=== PATIENT | female | born 1985 | race Caucasian/White ===

== ENCOUNTER 2024-10-12 12:23 | Emergency (ER) | payer BC, SELFPAY ==
[2024-10-12 12:26] VITALS: BP 111/76
--- NOTE | 2024-10-12 12:53 | ED.GENMED ---
History of Present Illness
General
Chief Complaint: Back Pain
Source: patient and family
Exam Limitations: none
Time Seen by Provider: 10/12/24 12:33
History of Present Illness
History of Present Illness:
39yoF with a history of IgA nephropathy, Nancy's, and endometriosis presenting with her mother for evaluation of low back pain. Symptoms initially began on 09/25/24. No reported trauma or inciting incident. She reports pain throughout her low back
which radiates into her anterior thighs and down the anterior legs. Pain is worse with movement and certain positions. Pain feels best if she is standing. She was unable to urinate and had loss of sensation in her bilateral legs on 09/28/24. She went
to [facility] and was admitted for 3 days. She had an MRI of her lumbar spine w/wo contrast which was negative for cauda equina syndrome. She was told that she had a disc bulge at L4-L5 and had degenerative disc disease. She was found to
be deficient in vitamin B12 and was started on injections. She finished a Decadron taper a week ago. She started to have worsening pain over the past 2 days and became became unmanageable today. She took 600mg ibuprofen this morning without relief.
She denies any fevers, saddle anesthesia, urinary retention, incontinence, abdominal pain. She has an appt scheduled with physiatry scheduled at the beginning of November.
Patient was able to pull up the results of her recent MRI on her phone. MRI revealed 'L4-L5, a disc bulge with superimposed left central disc herniation results in mass effect on the bilateral subarticular zones with disc material contacting the
bilateral traversing L5 nerve roots.'
Phy Exam
Physical Exam
Physical Exam:
Standing due to pain. Appears uncomfortable, non-toxic
General Physical Exam
General Presentation: well appearing
General Skin: warm and dry
General Habitus: normal
General Mental: alert
ENT Exam
ENT Exam: normocephalic
Neurological Exam
Neurological Exam: alert and other (Able to left both legs against gravity but hip flexion elicits back pain. Dorsiflexion and plantar flexion intact. 2+ patellar reflexes bilaterally and sensation intact.)
[place] Coma Scale
Eye Opening: Spontaneous
Verbal Response: Oriented
Motor Response: Obeys Commands
GCS Total Score: 15
Musculoskeletal Exam
Musculoskeletal Exam: other (+Tenderness to palpation throughout lumbar region. No skin changes. )
Skin Exam
Skin Exam: normal color and warm/dry
Psychiatric Exam
Psychiatric Exam: normal mood/affect
Course
Orders/Labs/Results
Orders:
Orders
10/12/24 12:52
Dexamethasone Sod Phosphate [Decadron] 10 mg IV NOW STA
Lidocaine [Lidocaine 4% Patch] 2 patch TOPICAL NOW STA
Apply Lidocaine patch(s) to:: low back
diazePAM [Valium Injection] 5 mg IV NOW STA
10/12/24 15:21
Ketorolac [Toradol] 30 mg IV NOW STA
Vital Signs
Initial and Last Documented VS:
Initial Vital Signs
Temp Pulse Resp BP Pulse Ox
98.5 F 97 18 111/76 98
10/12/24 12:26 10/12/24 12:26 10/12/24 12:26 10/12/24 12:26 10/12/24 12:26
Last Documented Vital Signs
Temp Pulse Resp BP Pulse Ox
98.5 F 97 18 111/76 98
10/12/24 12:26 10/12/24 12:26 10/12/24 12:26 10/12/24 12:26 10/12/24 12:26
MDM/Problems Addressed
Differential Diagnosis Includes:
39yoF here with low back pain radiating down both anterior legs. Started last month and was admitted at [facility]. MRI lumbar spine negative for cauda equina but showed a central disc herniation at L4-L5. Pain worsening since yesterday. No trauma. No red
flags in history including no fevers, saddle anesthesia, incontinence. VSS. She appears uncomfortable due to pain. There is reproducible tenderness in the lumbar region. No foot drop noted. Patellar reflexes and sensation intact in lower
extremities. Differential diagnosis includes but is not limited to: lumbar radiculopathy, strain, doubt fracture
Initial ED plan: No indication for imaging at this time given recent MRI and lack of red flag symptoms. IV Decadron, Valium, and lidocaine patch for pain.
*Critical Care Note
Total Time (30-74mins, 75-104mins- exclusive of procedures): Not Applicable
Update Note
Update Note:
Pain improved after medications. Case was discussed with neurosurgeon on-call, Dr. Ansari, to help expedite outpatient follow-up. Neurosurgery is able to see patient in the office on Monday next week. Prescriptions provided for prednisone and
Valium. ED return precautions discussed. Patient and mother in agreement with plan and patient was discharged in stable condition.
ED Attending Note
-
Portions of this chart may have been created with voice recognition software.� Occasional wrong word or��sound alike� substitutions may have occurred due to the inherent limitations of voice recognition software.
Discharge Plan
Departure
Patient Disposition: Home (Routine Discharge)
Date of Disposition: 10/12/24
Time of Disposition: 15:22
Patient with high blood pressure during this ER visit?: No
Discharge Problem:
Low back pain radiating down leg
Instructions: Radiculopathy (DC)
Prescriptions:
New
prednisone 50 mg tablet
50 mg PO DAILY Qty: 5 0RF
diazepam [Valium] 5 mg tablet
5 mg PO TID PRN (Reason: muscle spasm) Qty: 9 0RF
Referrals:
Gris Ansari MD [Active] -
UNKNOWN - PT DOES,NOT KNOW [Family Provider] -
Activity Restrictions/Additional Instructions:
Take prednisone as prescribed. You may take ibuprofen as needed sparingly. Take Valium as needed for breakthrough pain/muscle spasm. Do not drink alcohol or drive while taking Valium.
The neurosurgery office will call you on Monday to schedule an appointment on Monday of this week. Return to the ER with any new or worsening symptoms including new incontinence or neurologic symptoms.
Interventions
Interventions:
*Risk Screen - Suicide Last Done: 10/12/24 12:26
*General Assessment Last Done: 10/12/24 12:26
*Neglect/Abuse Screening Last Done: 10/12/24 12:26
*ED- Fall Risk Assessment Last Done: 10/12/24 12:26
*ED COVID-19 Vaccine History Last Done: 10/12/24 12:26
*Nursing Disposition Last Done: 10/12/24 16:25
ED-Musculoskeletal Assessment Last Done: 10/12/24 12:34
Discharge Date and Time
Discharge Date/Time: 10/12/24 16:25
Print Language: [email or web address]
[2024-10-12] MEDS: LIDOCAINE 4% PATCH 2 PATCH TOPICAL (13:14)
[2024-10-12] MEDS: DECADRON 10 MG IV (13:14)
[2024-10-12] MEDS: VALIUM INJECTION 5 MG IV (13:15)
[2024-10-12] MEDS: TORADOL 30 MG IV (15:30)
== END 2024-10-12 16:25 | disposition home or self-care (01) ==
LOC: EMR 12:23
PROVIDERS: EMERGENCY PHYSICIAN Emergency Medicine
DX: M51.360 Other intervertebral disc degeneration, lumbar region with discogenic back pain only (principal); N02.B1 Recurrent and persistent immunoglobulin A nephropathy with glomerular lesion; E06.3 Autoimmune thyroiditis
CPT/HCPCS: 99282; 96374; 96375